=== PATIENT | female | born 1950 | race Caucasian/White ===

== ENCOUNTER 2020-06-05 07:32 | Day surgery (SDC) | payer OTHER, SELFPAY ==
[2020-06-05 07:46] VITALS: BP 143/77; PULSE 67; RESP 16; TEMP 36.6; O2SAT 99
[2020-06-05 09:20] VITALS: BP 137/69; PULSE 72; RESP 16; TEMP 35.9; O2SAT 98
[2020-06-05] MEDS: Povidone-Iodine Ophth 30 ML BTL OD (09:23)
[2020-06-05] MEDS: Lidocaine 2% Jelly 6 ML SYR (09:24)
[2020-06-05] MEDS: Tetracaine 0.5% 4 ML BTL OD (09:25)
[2020-06-05] MEDS: Balanced Salt Soln.-PLUS 500 ML BAG (09:35)
[2020-06-05] MEDS: Lidocaine 1% Pres-Free 5 ML VIAL (09:35)
[2020-06-05] MEDS: Moxifloxacin-PF 1 MG/ML VIAL (09:37)
--- NOTE | 2020-06-05 09:54 | W.PM.DSUDISC ---
Discharge Plan Disposition Patient Disposition: HOME Condition: Good Discharge Details Attending Provider: Fabrizio Thurman Primary Care Provider: Christen Conn Home Meds and New Rx's Prescriptions: No Action lovastatin 10 mg tablet 10 mg PO DAILY RF: 0 aspirin 81 mg Tablet,Chewable 81 mg PO DAILY RF: 0 Discharge Instructions Stand Alone Forms: Post-op Topical Cataract, Gayle Eden (DSU) Discharge Orders Discharge Orders: Discharge Order (Routine); Ordered 06/05/20 Ordered By: Fabrizio Thurman DS: Diagnosis Discharge Diagnosis (1) Nuclear sclerotic cataract of right eye: Status: Resolved
--- NOTE | 2020-06-05 09:55 | ROE_ITS ---
Date of service: 06/05/20 Time of Service: 09:55 Operative Note Operative Note DATE OF PROCEDURE: 06/05/20 PRE-OP DIAGNOSIS: Nuclear cataract, right eye POST-OP DIAGNOSIS: same PROCEDURE: Cataract extraction using phacoemulsification with intraocular lens implant, right eye SURGEON: Fabrizio Thurman ANESTHESIA: MAC and local (sub-tenon's anesthetic infiltration) ESTIMATED BLOOD LOSS: 0 PATHOLOGY: none sent COMPLICATIONS: None Patient was transported to: same day Patient's condition: stable Implants: Russ [employer] Russ Vision / [employer] Tecnis [id number] intr aocular lens Indications: Progressive decreased vision due to cataract, right eye Procedure Description: CATARACT SURGERY OPERATIVE REPORT PREOPERATIVE DIAGNOSIS: Nuclear cataract, right eye POSTOPERATIVE DIAGNOSIS: Same OPERATION: Cataract extraction using phacoemulsification with posterior chamber intraocular lens implant, right eye. IOL: IOL Parking Meter Installer/Model: [employer]J Vision / DWIGHT Tecnis ZCB00 IOL Power: + 19.50 diopters IOL Serial Number: [id number] Optic Diameter: 6.0mm Haptic/Overall Diameter: 13.0mm PHACO INFO: Tito [employer] Vision System with OZil and Active Fluidics Cumulative Dispersed Energy (CDE): 9.72 seconds SURGEON: Fabrizio Thurman MD, JOSE ANESTHESIA: Monitored Anesthesia Care (MAC), with local sub-tenon's anesthetic infiltration COMPLICATIONS: None SPECIMENS: None INDICATIONS FOR PROCEDURE: The patient is a 69-year-old lady with history of progressive decreased vision in her right eye. She was noted to have significant nuclear cataract. The option of cataract surgery was offered to the patient and she felt she was symptomatic enough that she wished to proceed. Corrected visual acuity was 20/100 in the right eye. PROCEDURE: The correct surgical eye was identified and marked as the right eye and the pupil was dilated in the preoperative area using mydriatics and cycloplegics. The dilated pupil size was 7.0 mm. Oral sedation was administered in the form of an Imprimis MKO Melt (midazolam 3mg/ketamine 25mg/ondansetron 2mg). The patient was brought to the operating room where cardiopulmonary monitoring was instituted and surgical time-out was performed, confirming the correct operative eye and IOL power. Topical anesthesia was administered and ophthalmic povidone-iodine 5% was instilled into the conjunctival fornices. Lidocaine gel was applied to the cornea and the jhonatna-ocular area was prepped with Betadine 10% solution and draped in the usual sterile fashion for intraocular surgery, including an aperture drape. A Tegaderm transparent film dressing was cut in half and used to cover the lashes and lid margins. Care was taken to sequester the lashes and lid margins under the Tegaderm dressing. A lid speculum was placed between the lids of the operative eye and the Manolo-Lelo operating microscope was maneuvered into position. Doyle scissors were then used to make a conjunctival buttonhole approximately 6mm posterior to the limbus in the inferonasal quadrant. Blunt dissection was c arried out to expose bare sclera, and a blunt-tipped sub-tenon?s anesthesia cannula was introduced and passed posteriorly along the globe where non- preserved plain lidocaine was injected into posterior sub-Tenon?s space. A sideport knife was used to make a paracentesis port inferiortemporally. Intraocular phenylephrine/lidocaine was injected into the anterior chamber. The anterior chamber was then filled with Healon Pro. A 2.4mm keratome knife was used to create a half-thickness groove at the limbus and then to construct a three-plane near-clear corneal tunnel extending 2.0mm into clear cornea in the superiortemporal position. . A flap was raised on the anterior capsule and capsulorhexis forceps were used to complete a continuous curvilinear capsulorhexis of 5.0 mm. The anterior chamber was noted to be quite deep. Balanced salt solution was then used to perform cortical cleaving hydrodissection and nuclear hydrodelineation until the lens could be freely rotated within the capsular bag. The lens nucleus was then disassembled and removed within the capsular bag and iris plane using phacoemulsification. Residual cortical material was removed using the I/A handpiece. The posterior capsule was carefully polished to remove as much residual lens epithelial cells as safely possible. The capsular bag was then inflated and the anterior chamber deepened with viscoelastic. The lens implant described above was inserted into the capsular bag using the DWIGHT [place] Injector. A Kuglen hook was used to dial the IOL into position. Residual viscoelastic was then removed first from posterior to the IOL, then from the anterior chamber using the I/A handpiece. The lens implant was noted to center nicely within the capsular bag. The incisions were stromally hydrated, and the anterior chamber was reformed using BSS. Then 0.5cc of moxifloxacin 1.0mg/ml were injected into the capsular bag and anterior chamber. The incisions were checked with a Weck spear and found to be secure. Several drops of ophthalmic povidone-iodine 5% were then applied to the eye followed by two drops of Imprimis combination prednisolone/moxifloxacin/nepafenac solution. The drapes were removed and a clear plastic protective eye shield was placed over the eye. The patient was then returned to Same Day Surgery in stable condition.
== END 2020-06-05 10:25 | disposition home or self-care (01) ==
PROVIDERS: PCP Family Medicine; Visit Provider Ophthalmology
PROC: (CPT 66984; principal; 2020-06-05 09:30)
DX: H25.11 Age-related nuclear cataract, right eye (principal); I10 Essential (primary) hypertension
CPT/HCPCS: 66984; V2632

== ENCOUNTER 2023-03-20 09:33 | Day surgery (SDC) | payer MEDICARE, OTHER, SELFPAY ==
[2023-03-20] MEDS: Tropicam./Phenyleph. (1/2.5%) 5 ML BTL OS ×3 (10:14→10:27)
[2023-03-20 10:15] VITALS: BP 148/70; PULSE 79; RESP 16; TEMP 36.6; O2SAT 98
--- NOTE | 2023-03-20 10:34 | W.ANESPRE ---
General Info Date of Service Date Performed: 03/20/23 Height: 5 ft 2 in Weight: 73.8 kg Body Mass Index (BMI): 29.7 Surgical Procedure: Operation Date: 03/20/23 11:25 Proposed Procedure Side Surgeon p Cataract Extraction with IOL Implant Left Fabrizio Thurman MD Meds Allergies and Home Medications Allergies Allergy/AdvReac Type Severity Reaction Status Date / Time niacin Allergy Severe Other (See Unverified 03/20/23 10:11 Comment) Home Medication Medication Instructions Recorded aspirin 81 mg chewable tablet 81 mg PO DAILY 06/03/20 lovastatin 10 mg tablet 10 mg PO HS 06/03/20 cholecalciferol (vitamin D3) 125 125 mcg PO DIRECTED 03/15/23 mcg (5,000 unit) tablet (Vitamin D3) Current Visit Medications: Current Medications Generic Name Dose Route Start Last Admin Trade Name Freq PRN Reason Stop Dose Admin Acetaminophen 1,000 mg 03/20/23 06:00 Acetaminophen 500 Mg Tab PO Q4H PRN PRN Miscellaneous Medication 0 ml 03/20/23 06:00 03/20/23 10:27 Tropicam./Phenyleph. (1/2.5%) 5 Ml Btl OS 1 drp DIRECTED CELESTE Administration Miscellaneous Medication 0 ml 03/20/23 06:00 Prednisolone 1%, Moxifloxacin 0.5%, Nepafenac 0.1% 5ml Btl OS DIRECTED CELESTE Tetracaine HCl 0 ml 03/20/23 06:00 Tetracaine 0.5% 4 Ml Btl OS DIRECTED CELESTE PFSH Active Problems Active Problems: Problem Status Onset Code Nuclear sclerotic cataract of right eye H25.11 Nuclear age-related cataract, left eye H25.12 Medical History Medical History Cervical dystonia Per Shefali Morin H&P: Tx with Botox [id number] Hypercholesteremia Hypertension Pt. denies this Tremor intermittent; stable Surgical History Surgical History H/O ovarian cystectomy Hx of cataract surgery 2020 right eye S/P HAYLEE-BSO (total abdominal hysterectomy and bilateral salpingo-oophorectomy) Tobacco Smoking/Tobacco Use Status: Former Tobacco Use Alcohol Alcohol Intake: never Substance Use Substance use: Never Substance use type: does not use Vital Signs and Lab Results Vital Signs Most Recent Vital Signs in EMR: Most Recent Vital Signs Temp Pulse Resp BP Pulse Ox 36.6 C 79 16 148/70 H 98 03/20/23 10:15 03/20/23 10:15 03/20/23 10:15 03/20/23 10:15 03/20/23 10:15 Lab Results Blood Type / Crossmatch: No Data to Display Complete Blood Count: No Data to Display Complete Metabolic Panel: No Data to Display Liver Function Panel: No Data to Display Coagulation Panel: No Data to Display Cardiac Panel: No Data to Display Arterial Blood Gas: No Data to Display Venous Blood Gas: No Data to Display Pancreas Panel: No Data to Display Thyroid Panel: No Data to Display Infectious Disease: No Data to Display Blood Cultures: No Data to Display Toxicology Panel: No Data to Display Anesthesia Assessment and Plan Anesthesia History Personal History: No History of Anesthesia Complications Family History: No Family History of Anesthesia Complications Exercise Tolerance Exercise Tolerance: Metabolic Equivalents>4 Pertinent Negatives Pertinent Negatives: No Symptoms of GERD Cardiac & Pulmonary Exam Cardiac Exam: Normal S1/S2 Heart Sounds Pulmonary Exam: Clear Bilateral Breath Sounds Implantable Cardiac Device Does patient have a Pacemaker or an ICD?: No Airway Exam Known Difficult Airway: No Mallampati Class: 2 Mouth Opening: Normal (> 3cm) Thyromental Distance: Greater than 3 cm Neck Range of Motion: Full ROM Neck Circumference: Normal Teeth Condition: Normal Dentition ASA Classification ASA Score: ASA 2 Emergency Case?: No NPO Status NPO Status: NPO Clears >2 hours, Solids >8 hours Anesthesia Plan Resuscitation Status: Full Code Anesthesia Technique: MAC Anesthesia Airway Planned: Natural Airway Monitors Used: Standard Monitors Preoperative Comments:: No recent change in health. Decline?s MKO
[2023-03-20 10:36] VITALS: BMI 29.7
[2023-03-20] MEDS: Tetracaine 0.5% 4 ML BTL OS (11:09)
[2023-03-20] MEDS: Povidone-Iodine Ophth 30 ML BTL (11:09)
[2023-03-20] MEDS: Duovisc Viscoelastic System EACH 1 EACH (11:17)
[2023-03-20] MEDS: Phenylephrine/Lidocaine (15/10) MG/ML 1 ML VIAL (11:17)
[2023-03-20] MEDS: Lidocaine 1% Pres-Free 5 ML VIAL (11:17)
[2023-03-20 11:38] VITALS: BP 149/62; PULSE 68; RESP 18; TEMP 36.4; O2SAT 99
--- NOTE | 2023-03-20 11:39 | W.PM.DSUDISC ---
Date of service: 03/20/23 Time of Service: 11:39 Discharge Plan Disposition Patient Disposition: Home Discharge Details Attending Provider: Fabrizio Thurman Primary Care Provider: Christen Conn Home Meds and New Rx's Prescriptions: No Action cholecalciferol (vitamin D3) [Vitamin D3] 125 mcg (5,000 unit) Tablet 125 mcg PO DIRECTED lovastatin 10 mg tablet 10 mg PO HS Patient Comments: TAKE 1 TABLET BY MOUTH ONCE DAILY WITH A MEAL aspirin 81 mg Tablet,Chewable 81 mg PO DAILY Discharge Instructions Stand Alone Forms: Post-op Topical Cataract, Gayle Eden (DSU) Discharge Orders Discharge Orders: Discharge Order (Routine); Ordered 03/20/23 Ordered By: Fabrizio Thurman DS: Diagnosis Discharge Diagnosis (1) Nuclear age-related cataract, left eye: Status: Resolved
--- NOTE | 2023-03-20 11:40 | ROE_ITS ---
Date of service: 03/20/23 Time of Service: 11:40 Operative Note Operative Note DATE OF PROCEDURE: 03/20/23 PRE-OP DIAGNOSIS: Nuclear cataract, left eye POST-OP DIAGNOSIS: same PROCEDURE: Cataract extraction using phacoemulsification with intraocular lens implant, left eye SURGEON: Fabrizio Thurman ANESTHESIA TYPE: Local By Surgeon and MAC Refer to Anesthesia Record PATHOLOGY: none sent COMPLICATIONS: None Patient was transported to: same day Patient's condition: stable Implants: Russ and Russ Tecnis Eyhance [id number] Indications: Progressive decreased vision due to cataract, left eye Procedure Description: CATARACT SURGERY OPERATIVE REPORT PREOPERATIVE DIAGNOSIS: 1. Nuclear cataract, left eye POSTOPERATIVE DIAGNOSIS: Same OPERATION: 1. Cataract extraction using phacoemulsification with posterior chamber intraocular lens implant, left eye. IOL: IOL Vacuum Plastic Forming Machine Operator/Model: Russ & Russ Tecnis Eyhance DIB00 IOL Power: + 20.5 diopters IOL Serial Number: [id number] Optic Diameter: 6.0 mm Haptic/Overall Diameter: 13.0 mm PHACO INFO: [employer] Vision System with OZil and Active Fluidics Cumulative Dispersed Energy (CDE): 13.70 seconds SURGEON: Fabrizio Thurman MD, JOSE ANESTHESIA: Monitored A [facility] (MAC), with local sub-tenon's anesthetic infiltration COMPLICATIONS: None SPECIMENS: None INDICATIONS FOR PROCEDURE: The patient is a 72-year-old lady with history of diminished visual acuity in her left eye secondary to the development of nuclear cataract. She has previously undergone cataract surgery in her right eye and is doing well postoperatively there. She now presents for cataract surgery in her left eye. The office notes for detailed information. PROCEDURE: The correct surgical eye was identified and marked as the left eye and the pupil was dilated in the preoperative area using mydriatics and cycloplegics. The dilated pupil size was 7.0 mm. The patient elected to proceed without oral sedation. The patient was brought to the operating room where cardiopulmonary monitoring was instituted and surgical time-out was performed, confirming the correct operative eye and IOL power. Topical anesthesia was administered and ophthalmic povidone-iodine 5% was instilled into the conjunctival fornices. The jhonatan-ocular area was prepped with Betadine 10% solution and draped in the usual sterile fashion for intraocular surgery, including an aperture drape. A Tegaderm transparent film dressing was cut in half and used to cover the lashes and lid margins. Care was taken to sequester the lashes and lid margins under the Tegaderm dressing. A lid speculum was placed between the lids of the operative eye and the Tito [employer] operating microscope was maneuvered into position. Doyle scissors were then used to make a conjunctival buttonhole approximately 6mm posterior to the limbus in the inferonasal quadrant. Blunt dissection was carried out to expose bare sclera, and a blunt-tipped sub-tenon?s anesthesia cannula was introduced and passed posteriorly along the globe where non- preserved plain lidocaine was injected into posterior sub-Tenon?s space. A sideport knife was used to make a paracentesis port superiorly/superiortempor ally. Intraocular phenylephrine/lidocaine was injected int the anterior chamber.. The anterior chamber was filled with viscoelastic. A keratome knife was used to construct a 2-plane near-clear corneal tunnel extending 2.0mm into clear cornea temporally. A flap was raised on the anterior capsule and capsulorhexis forceps were used to complete a continuous curvilinear capsulorhexis of 5.5 mm. Balanced salt solution was then used to perform cortical cleaving hydrodissection and nuclear hydrodelineation until the lens could be freely rotated within the capsular bag. The lens nucleus was then disassembled and removed within the capsular bag and iris plane using phacoemulsification. Residual cortical material was removed using the 45-degree angled silicone I/A tip with 0.3mm port. The posterior capsule was carefully polished to remove as much residual lens epithelial cells as safely possible. The capsular bag was then inflated and the anterior chamber deepened with viscoelastic. The lens implant described above was inserted into the capsular bag using the Russ [employer] Russ Simplicity pre-loaded injector. . A Kuglen hook was used to dial the IOL into position. Residual viscoelastic was then removed first from posterior to the IOL, then from the anterior chamber using the I/A handpiece. The lens implant was noted to center nicely within the capsular bag. The incisions were stromally hydrated, and the anterior chamber was reformed using BSS. Then 0.5cc of moxifloxacin 1.0mg/ml were injected into the capsular bag and anterior chamber. The incisions were checked with a Weck spear and found to be secure. Several drops of ophthalmic povidone-iodine 5% were then applied to the eye followed by two drops of Imprimis combination prednisolone/moxifloxacin/nepafenac solution. The drapes were removed and a clear plastic protective eye shield was placed over the eye. The patient was then returned to Same Day Surgery in stable condition.
--- NOTE | 2023-03-20 11:55 | W.ANESPOSTOP ---
Postoperative Evaluation Date, Time and Location Date Performed: 03/20/23 Time Performed: 11:49 Patient Location: Day Surgery Unit Vital Signs Most Recent Imported Vital Signs: Most Recent Vital Signs Temp Pulse Resp BP Pulse Ox 36.4 C L 68 18 149/62 H 99 03/20/23 11:38 03/20/23 11:38 03/20/23 11:38 03/20/23 11:38 03/20/23 11:38 Pain Score Most Recent Pain Score: Most Recent Pain Score Pain Level 0 03/20/23 11:38 Assessment Mental Status: Awake (Alert & Oriented to Patient Baseline) Airway and Respiratory Function: Patent airway with normal (patient baseline) respiratory exam Cardiovascular Function: Hemodynamically Stable Hydration Status: Adequately Hydrated Nausea & Vomiting: No Nausea or Vomiting Pain: Pt. Denies Any Pain Peripheral Nerve Block: Patient did not receive a nerve block
== END 2023-03-20 11:54 | disposition home or self-care (01) ==
LOC: SUR 09:36
PROVIDERS: PCP Family Medicine; Visit Provider Ophthalmology
PROC: (CPT 66984; principal; 2023-03-20 11:15)
DX: H25.12 Age-related nuclear cataract, left eye (principal); I10 Essential (primary) hypertension; Z98.41 Cataract extraction status, right eye
CPT/HCPCS: 66984; V2632